=== PATIENT | male | born 1985 | race Caucasian/White ===

== ENCOUNTER 2017-11-09 09:00 | Emergency (ER) | payer BC ==
[~2017-11-09] VITALS: Ht 165.1 cm; Wt 61.2 kg
[2017-11-09 09:08] VITALS: TEMP 36.8; Ht 165.1 cm; Wt 61.2 kg
[2017-11-09] MEDS ORDERED: IBUPROFEN 600 MG TAB PO STA (09:23)
[2017-11-09] MEDS ORDERED: PERCOCET HOME PACK PO STA (09:23)
[2017-11-09] MEDS ORDERED: PENICILLIN V POTASSIUM 250 MG TAB PO STA (09:23)
[2017-11-09] MEDS ORDERED: OXYC-57 PO (09:27)
[2017-11-09] MEDS ORDERED: PENI500T2 PO (09:27)
--- NOTE | 2017-11-09 09:43 | EMERGENCY ROOM VISIT NOTE ---
History Report prepared by Marybelibrach: Sean Mosher Under the Supervision of: Dr. Landon Kirkpatrick M.D. First contact with patient: 09:16 Chief Complaint: DENTAL PAIN Stated Complaint: TOOTH PAIN Nursing Triage Summary: triage note: Pt reports left lower dental pain "for the past couple days." pt reports taking tylenol approx 2 hours ago. History of Present Illness The patient is a 32 year old male who presents to the Emergency Room with complaints of constant left-sided dental pain beginning a few days ago. He has taken Ibuprofen and Tylenol for his pain, but nothing has improved his symptoms. He does not have a dentist. The patient does not have a history of dental problems. He does not smoke but notes that he vapes. He denies shortness of breath or fevers. Source of History: patient Onset: A few days ago Position: teeth (left sided) Timing: constant Modifying Factors (Relieving): other (none) Associated Symptoms: No fevers, No SOB Review of Systems See HPI for pertinent positives & negatives. A total of 10 systems reviewed and were otherwise negative. Past Medical & Surgical Medical Problems: (1) Hydrocele (2) Left flank pain (3) No Known Active Medical Problems (4) Plantar wart of left foot Family History Hypertension Lung disease Social History Smoking Status: Current Every Day Smoker Alcohol Use: occasionally Marital Status: in relationship Housing Status: lives with significant other Occupation Status: employed Current/Historical Medications Scheduled Penicillin V Potassium (Veetids), 1 TAB PO QID Scheduled PRN Oxycodone/Acetaminophen 5MG/325MG (Percocet 5MG/325MG), 1-2 TAB PO Q4H PRN for Pain Miscellaneous Medications None (Patient States No Home Meds) Allergies Coded Allergies: No Known Allergies (Unverified , 04/16/15) Physical Exam Vital Signs Date Time Temp Pulse Resp B/P (MAP) Pulse Ox O2 Delivery O2 Flow Rate FiO2 11/09/17 09:53 71 18 152/88 98 11/09/17 09:08 36.8 79 18 142/94 99 Room Air Physical Exam GENERAL: Awake, alert, well-appearing, in no acute distress HENT: Normocephalic, atraumatic. Dental carries to bottom left molar. No evidence of Memo's angina. No evidence of facial cellulitis. No evidence of abscess. EYES: Normal conjunctiva. Sclera non-icteric. NECK: Supple. No nuchal rigidity. FROM. No JVD. RESPIRATORY: Clear to auscultation. CARDIAC: Regular rate, normal rhythm. Extremities warm and well perfused. Pulses equal. ABDOMEN: Soft, non-distended. No tenderness to palpation. No rebound or guarding. No masses. RECTAL: Deferred. MUSCULOSKELETAL: Chest examination reveals no tenderness. The back is symmetrical on inspection without obvious abnormality. There is no CVA tenderness to palpation. No joint edema. LOWER EXTREMITIES: Calves are equal size bilaterally and non-tender. No edema. No discoloration. NEURO: Normal sensorium. No sensory or motor deficits noted. SKIN: No rash or jaundice noted. Medical Decision & Procedures Medications Administered Medications (Trade) Dose Ordered Sig/Cait Route Start Time Stop Time Status Last Admin Dose Admin Ibuprofen (Motrin Tab) 600 mg NOW STAT PO 11/09/17 09:23 11/09/17 09:24 DC 11/09/17 09:49 600 MG Oxycodone/ Acetaminophen (Percocet 5/ 325MG Home Pack) 1 homepack UD STAT PO 11/09/17 09:23 11/09/17 09:24 DC 11/09/17 09:49 1 HOMEPACK Penicillin V Potassium (Veetids Tab) 500 mg NOW STAT PO 11/09/17 09:23 11/09/17 09:24 DC 11/09/17 09:49 500 MG ED Course 0919: Past medical records reviewed. The patient was evaluated in room B3B. A complete history and physical examination was performed. 0923: Ordered Veetids Tab 500 mg PO, Percocet 5/325 mg homepack PO, Motrin Tab 600 mg PO. 0930: Upon reexamination the patient is resting comfortably. I discussed results and treatment plan with the patient. He verbalizes agreement and understanding. The patient is ready for discharge. Medical Decision Differential diagnosis: Etiologies such as Memo's angina, cellulitis, abscess, MRSA infection, allergic reaction, as well as others were entertained. This is a 32-year-old male who presents the emergency department complaining of dental pain. The patient has what appears to be very poor dentition the left back molar. His name does not come up in the PD MP. The patient was given Motrin as well as Percocet to go here in the emergency department. I see no evidence of abscess or Memo's angina on examination. The patient was started on Pen-Vee K here in the emergency department and will be placed on a Percocet prescription. I strongly recommended that the patient follow-up with a dentist. Patient was in agreement with the treatment plan. Medication Reconcilliation Current Medication List: was personally reviewed by me Blood Pressure Screening Patient's blood pressure: Elevated blood pressure Blood pressure disposition: Elevated BP felt to be situational Impression Primary Impression: Pain, dental Scribe Attestation The scribe's documentation has been prepared under my direction and personally reviewed by me in its entirety. I confirm that the note above accurately reflects all work, treatment, procedures, and medical decision making performed by me. Departure Information Dispostion Home / Self-Care Prescriptions Oxycodone/Acetaminophen 5MG/325MG (PERCOCET 5MG/325MG) Tab 1-2 TAB PO Q4H Y for Pain, #14 TAB Prov: Landon Kirkpatrick MD 11/09/17 Penicillin V Potassium (VEETIDS) 500 Mg Tab 1 TAB PO QID for 10 Days, #40 TAB Prov: Landon Kirkpatrick MD 11/09/17 Referrals No Doctor, Assigned (PCP) Forms HOME CARE DOCUMENTATION FORM, IMPORTANT VISIT INFORMATION Patient Instructions ED Tooth Pain, My [facility] Additional Instructions NEED FOLLOW UP WITH DENTIST You received narcotic or benzodiazepene medication while in the emergency room today. This is an addictive medication that may cause drowziness as well as constipation. Do not drive, operate heavy machinery, or drink alcohol under the influence of this medication. Take 600 mg Ibuprofen every 6 hours Take Percocet for breakthrough pain You have been examined and treated today on an emergency basis only. This is not a substitute for, or an effort to provide, complete comprehensive medical care. It is impossible to recognize and treat all injuries or illnesses in a single emergency department visit. It is therefore important that you follow up closely with your PCP. Call as soon as possible for an appointment. Thank you for your time and consideration. I look forward to speaking with you again soon. Please don't hesitate to call us if you have any questions.
[2017-11-09 09:53] VITALS: BP 152/88; PULSE 71; O2SAT 98
== END 2017-11-09 09:54 | disposition home or self-care (01) ==
LOC: C.EDB 09:01
DX: K08.89 Other specified disorders of teeth and supporting structures (principal); Z82.49 Family history of ischemic heart disease and other diseases of the circulatory system; F17.200 Nicotine dependence, unspecified, uncomplicated